=== PATIENT | male | born 1975 | race Hispanic/Latino ===

== ENCOUNTER 2016-08-15 22:30 | Emergency (ER) | payer OTHER ==
[~2016-08-15 22:30] MED LIST: ANUSOL HC-HEMOR1 SUP RC
--- NOTE | 2016-08-15 22:32 | ED DYSPNEA/ASTHMA COMPLAINT ---
History of Present Illness General Chief Complaint: Dyspnea (COPD, CHF, Other) Stated Complaint: BIBA CP/SOB Source: patient Exam Limitations: no limitations Vital Signs & Intake/Output Vital Signs & Intake/Output Vital Signs Date Time Temp Pulse Resp B/P Pulse O2 O2 Flow FiO2 Ox Delivery Rate 08/16 0314 98.4 08/16 0300 98.4 88 22 127/62 96 Room Air 08/15 2248 99.2 118 20 151/79 95 Room Air Room Air Allergies Coded Allergies: NO KNOWN ALLERGIES (08/15/16) Reconcile Medications Albuterol Sulfate (Ventolin Hfa) 90 MCG HFA.AER.AD 2 PUF INH Q4-6 PRN PRN BRONCHOSPASM Amoxicillin 875 MG TABLET 1 TAB PO BID ANTIBIOTIC (Reported) Guaifenesin/Codeine Phosphate (Cheratussin AC Syrup) 100 MG-10 MG/5 ML LIQUID 10 ML PO Q4-6H PRN COUGH (Reported) Ibuprofen 800 MG TABLET 1 TAB PO TID PRN PAIN Levofloxacin (Levaquin) 500 MG TABLET 1 TAB PO DAILY PNEUMO Phenylephrine/Dm/Acetaminop/GG (Mucinex Fast-Max Cold-Flu Cplt) 5 MG-10 MG-325 MG-200 MG TABLET 2 TAB PO AD COUGH/COLD (Reported) Prednisone 50 MG TABLET 1 TAB PO DAILY BRONCHOSPASM Triage Nurses Notes Reviewed? yes Onset: Gradual Duration: day(s): Timing: recent history Severity: mild, moderate Activities at Onset: COUGHING Prior Episodes/Possible Cause: no prior episodes Modifying Factors: Improves With: rest, other (BETTER W/NEB). Associated Symptoms: cough, wheezing HPI: 41yo gentleman, h/o cigarette smoking, TOSHA, presents with dyspnea and wheeze for the past 2-3 days, on amoxicillin. He shares that tonight he felt a sudden onset of right lower rib cage pain, worse with palpation, deep inspiration. "I could put my hand on my rib cage and it felt like it was out of place." 911 called. He was 92% en route, and felt better with an albuterol nebulizer. He is otherwise well, no syncopal symptoms, substernal pain, fever, chills, phlegm Past History Travel History Traveled to [place] past 21 day No Medical History Any Pertinent Medical History? see below for history Respiratory: SLEEP APNEA Musculoskeletal: HERNIA Surgical History Surgical History: none Psychosocial History What is your primary language Algerian Family History Hx Contributory? No Review of Systems Review of Systems Constitutional: Reports: no symptoms. EENTM: Reports: no symptoms. Respiratory: Reports: no symptoms. Cardiovascular: Reports: no symptoms. GI: Reports: no symptoms. Genitourinary: Reports: no symptoms. Musculoskeletal: Reports: no symptoms. Skin: Reports: no symptoms. Neurological/Psychological: Reports: no symptoms. Hematologic/Endocrine: Reports: no symptoms. Immunologic/Allergic: Reports: no symptoms. All Other Systems: Reviewed and Negative Physical Exam Physical Exam General Appearance: well developed/nourished, mild distress Head: atraumatic, normal appearance Eyes: Bilateral: normal appearance. Ears, Nose, Throat: normal pharynx, normal ENT inspection Neck: normal inspection, supple, full range of motion Respiratory: normal breath sounds, right lower rib cage tenderness to palpation. Cardiovascular: regular rate/rhythm Gastrointestinal: normal bowel sounds, soft, non-tender, no organomegaly Extremities: normal inspection, normal range of motion, no edema Neurologic/Psych: no motor/sensory deficits, awake, alert, oriented x 3 Skin: intact, normal color, warm/dry Core Measures ACS in differential dx? No Severe Sepsis Present: No Septic Shock Present: No Progress Differential Diagnosis: asthma, bronchitis, costochondritis, musculoskeletal pain Plan of Care: Orders Procedure Date/time Status TROPONIN LEVEL 08/16 139 Complete EKG 08/16 139 Active TROPONIN LEVEL 08/15 2231 Complete COMPREHENSIVE METABOLIC PANEL 08/15 2231 Complete CBC WITHOUT DIFFERENTIAL 08/15 2231 Complete EKG 08/15 2231 Active Laboratory Tests 08/16/16 0142: Troponin I 0.07 08/15/16 2242: Anion Gap 14, Estimated GFR > 60, BUN/Creatinine Ratio 15.0, Glucose 137 H, Calcium 8.5, Total Bilirubin 1.1, AST 23, ALT 35, Alkaline Phosphatase 56, Troponin I 0.09, Total Protein 6.1 L, Albumin 3.4 L, Globulin 2.7, Albumin/ Globulin Ratio 1.3, CBC w Diff NO MAN DIFF REQ, RBC 4.54 L, MCV 84.0, MCH 28.5, RDW 13.9, MPV 7.4, Gran % 83.1 H, Lymphocytes % 9.6 L, Monocytes % 3.9, Eosinophils % 3.2, Basophils % 0.2, Absolute Granulocytes 7.3 H, Absolute Lymphocytes 0.8 L, Absolute Monocytes 0.3, Absolute Eosinophils 0.3, Absolute Basophils 0, PUBS MCHC 33.8 Diagnostic Imaging: Viewed by Me: Radiology Read. Discussed w/RAD: Radiology Read. CXR Impression: r upper lobe infiltrate Initial ED EKG: normal axis, normal intervals, normal p-waves, normal QRS complex, normal sinus rhythm Comments: PATIENT: RUBEN LEES PRESENT AGE: 41 PATIENT ACCOUNT NO: [id number] : 77 LOCATION: [facility] ORDERING PHYSICIAN: MAGALY CONTEH MD SERVICE DATE: 08/15/16 EXAM TYPE: RAD - XRY-CHEST XRAY, PA AND LATERAL EXAMINATION: XR CHEST CLINICAL INFORMATION: Dyspnea. Right lower rib cage pain. COMPARISON: None. TECHNIQUE: PA and lateral views of the chest were obtained. FINDINGS: The lungs are well expanded. There is a right perihilar upper lobe consolidation. The left lung is clear. No pleural effusion or edema. No pneumothorax. The cardiomediastinal silhouette is within normal limits. No acute osseous abnormality. IMPRESSION: Right upper lobe pneumonia. DICTATED BY: GRAHAM CAMACHO MD DATE/TIME DICTATED:08/15/162307 TETRYL BLENDER OPERATOR:JERMAINE DATE/TIME TRANSCRIBED:08/15/162307 CONFIDENTIAL, DO NOT COPY WITHOUT APPROPRIATE AUTHORIZATION. <Electronically signed in Other Vendor System> SIGNED BY: GRAHAM CAMACHO MD 08/15 Departure Departure Disposition: HOME OR SELF CARE Condition: Stable Clinical Impression Primary Impression: Bronchospasm Secondary Impressions: Chest wall pain, Pneumonia Referrals: KASSANDRA LANCE MD (PCP/Family) Departure Forms: Customer Survey General Discharge Information Prescriptions: Current Visit Scripts Levofloxacin (Levaquin) 1 TAB PO DAILY #10 TAB Prednisone 1 TAB PO DAILY #4 TAB Albuterol Sulfate (Ventolin Hfa) 2 PUF INH Q4-6 PRN PRN BRONCHOSPASM #1 INHAL Ref 1 Ibuprofen 1 TAB PO TID PRN PAIN #30 TAB Comments 08/16/16, 2:15am... trop #2, ekg#2 benign... pt stable on 02 sat 97% room air... he would like to go home... i doubt cardiac issues... pt has pneumonia by sypmtoms and xray... pt safe for discharge... close follow up advised. Critical Care Note Critical Care Note Critical Care Time: non-applicable
[2016-08-15 22:49] LABS: ABSOLUTE BASOPHIL COUNT 0 /CUMM (0.0-0.2); ABSOLUTE EOSINOPHIL COUNT 0.3 /CUMM (0.0-0.7); ABSOLUTE GRANULOCYTE CT 7.3 /CUMM (1.4-6.5); ABSOLUTE LYMPH COUNT 0.8 /CUMM (1.2-3.4); ABSOLUTE MONOCYTE COUNT 0.3 /CUMM (0.10-0.60); BASOPHIL % 0.2 % (0.0-2.0); EOSINOPHIL % 3.2 % (0-5); HEMATOCRIT 38.2 % (42-52); MEAN CORPUSCULAR HGB 28.5 PG (27.0-31.0); MEAN CORPUSCULAR HGB CONC 33.8 G/DL (33.0-37.0); MEAN PLATELET VOLUME 7.4 FL (7.4-10.4); PLATELET COUNT 237 /CUMM (130-400); RBC DISTRIBUTION WIDTH 13.9 % (11.5-14.5); RED BLOOD CELL CT 4.54 /CUMM (4.70-6.10); WHITE BLOOD CELL COUNT 8.8 /CUMM (4.8-10.8)
[2016-08-15 22:54] LABS: GRANULOCYTE % 83.1 % (42.2-75.2)
[2016-08-15] MEDS ORDERED: AMOXICILLIN875 M1 PO (23:09)
[2016-08-15] MEDS ORDERED: CHERATUSSIN AC118 ML PO (23:10)
[2016-08-15] MEDS ORDERED: MUCINEX FAST M PO (23:10)
--- NOTE | 2016-08-15 23:12 | RADIOLOGY REPORT ---
EXAMINATION: XR CHEST CLINICAL INFORMATION: Dyspnea. Right lower rib cage pain. COMPARISON: None. TECHNIQUE: PA and lateral views of the chest were obtained. FINDINGS: The lungs are well expanded. There is a right perihilar upper lobe consolidation. The left lung is clear. No pleural effusion or edema. No pneumothorax. The cardiomediastinal silhouette is within normal limits. No acute osseous abnormality. IMPRESSION: Right upper lobe pneumonia.
[2016-08-16 03:00] VITALS: BP 127/62
[2016-08-16] MEDS ORDERED: IBUPROFEN800 M1 PO (03:07)
[2016-08-16] MEDS ORDERED: VENTOLIN HFA18 GM INH (03:07)
[2016-08-16] MEDS ORDERED: PREDNISONE50 M1 PO (03:07)
[2016-08-16] MEDS ORDERED: LEVAQUIN500 M1 PO (03:07)
== END 2016-08-16 03:15 ==
LOC: ERH 22:30
PROVIDERS: Pediatrics
DX: J18.9 Pneumonia, unspecified organism (principal); J98.01 Acute bronchospasm; R07.89 Other chest pain
CPT/HCPCS: 93005; 93010; 96374; J0456; J0696